=== PATIENT | female | born 1965 | race Caucasian/White ===

== ENCOUNTER 2022-03-12 15:46 | Outpatient (REF) | payer OTHER, SELFPAY ==
--- NOTE | ~2022-03-12 | XR_ITS ---
EXAMINATION: XR BILATERAL HIPS WITH AP PELVIS CLINICAL INFORMATION: Meralgia paresthetica, bilateral lower limbs. COMPARISON: None TECHNIQUE: AP view of the pelvis and single views of each hip were obtained. FINDINGS: No acute fracture or dislocation is seen. There may be old trauma to the left inferior pubic symphysis. There is arthritis at the bilateral hip joints with superior lateral osteophyte formation. There is increased coverage of the superior lateral femoral head questionable for CAM deformity. Soft tissue calcification adjacent to the greater trochanter. There is soft tissue arterial calcification. XR/XR hip BI w PEL1V IMPRESSION: Question old trauma to the left inferior pubic symphysis. 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 Soft tissue calcification adjacent to the right greater trochanter.
--- NOTE | ~2022-03-12 | XR_ITS ---
EXAMINATION: XR LUMBOSACRAL SPINE WITH OBLIQUES CLINICAL INFORMATION: Spondylosis without myelopathy or radiculopathy, lumbar COMPARISON: None TECHNIQUE: AP, both oblique, flexion and extension and lateral views of the lumbar spine. Lateral view of the lumbosacral junction. FINDINGS: There is transitional anatomy with 6 lumbar-type vertebral bodies. For the purposes of this dictation, levels are designated with the transitional segment is designated superiorly and the top of the iliac crest at the L4-L5 disc space level. Bone alignment is normal. No fracture or dislocation is seen. No instability on flexion-extension views is seen. Disc spaces are normal. There is mild degenerative spondylosis and facet arthritis. There is question of L5 pars defect on the left. Paraspinal soft tissues are normal. XR/XR lumbar spine 6V w bending IMPRESSION: Transitional anatomy or 6 lumbar-type vertebral bodies with transitional segment designated superiorly. Mild degenerative changes. Question pars defect at L5 on the left. Mild degenerative changes.
== END 2022-03-12 15:47 | disposition home or self-care (01) ==
LOC: HO.XRAY 15:46
PROVIDERS: PCP Internal Medicine; Visit Provider Nurse Practitioner Family
DX: G57.13 Meralgia paresthetica, bilateral lower limbs (principal); M47.816 Spondylosis without myelopathy or radiculopathy, lumbar region; R29.898 Other symptoms and signs involving the musculoskeletal system; E11.40 Type 2 diabetes mellitus with diabetic neuropathy, unspecified
CPT/HCPCS: 72114; 73521

== ENCOUNTER → 2022-04-05 14:34 | Outpatient (BNVA) | payer OTHER, MEDICAID, SELFPAY | PROVIDERS: PCP Internal Medicine; Visit Provider Orthopaedic Surgery | DX: M16.11 Unilateral primary osteoarthritis, right hip (principal); E11.40 Type 2 diabetes mellitus with diabetic neuropathy, unspecified | CPT/HCPCS: 99202 ==

== ENCOUNTER 2022-04-27 12:44 | Outpatient (REF) | payer OTHER, MEDICAID, SELFPAY | END 2022-04-27 12:45 | disposition home or self-care (01) | LOC: HO.LAB 12:44 | PROVIDERS: PCP Internal Medicine; Visit Provider Urology | DX: R32 Unspecified urinary incontinence (principal); N39.0 Urinary tract infection, site not specified | CPT/HCPCS: 51701; 51798; 87086; 87088; 87186; 99202 ==

== ENCOUNTER 2022-05-23 13:45 | Outpatient (REF) | payer OTHER, SELFPAY ==
--- NOTE | 2022-05-23 10:30 | EMG_ITS ---
Please see scanned EMG / Nerve Conduction Report. MTDD
== END 2022-05-23 13:46 | disposition home or self-care (01) ==
LOC: HO.NEURO 13:45
PROVIDERS: PCP Internal Medicine; Visit Provider Nurse Practitioner Family
DX: G57.13 Meralgia paresthetica, bilateral lower limbs (principal); E11.40 Type 2 diabetes mellitus with diabetic neuropathy, unspecified; M47.816 Spondylosis without myelopathy or radiculopathy, lumbar region; R29.898 Other symptoms and signs involving the musculoskeletal system
CPT/HCPCS: 95885; 95913

== ENCOUNTER → 2022-05-31 14:40 | Outpatient (BNVA) | payer OTHER, MEDICAID, SELFPAY | PROVIDERS: PCP Internal Medicine; Visit Provider Nurse Practitioner Family | DX: Z13.89 Encounter for screening for other disorder (principal) ==

== ENCOUNTER 2022-06-13 14:37 | Outpatient (REF) | payer OTHER, SELFPAY ==
--- NOTE | ~2022-06-13 | US_ITS ---
EXAMINATION: US RETROPERITONEAL LIMITED (RENAL ONLY) CLINICAL INFORMATION: Urinary tract infection, site not specified. COMPARISON: Ultrasound retroperitoneal complete (renal) 09/08/2021. TECHNIQUE: Real-time imaging of the kidneys. FINDINGS: RIGHT KIDNEY: 12.9 x 4.5 x 5.7 cm (SAG x AP x TRV). The kidney is normal in size, contour, and echogenicity. Renal cortical thickness is normal. No calculi or focal parenchymal lesions. No hydronephrosis. LEFT KIDNEY: 12.6 x 4.9 x 5.6 cm (SAG x AP x TRV). The kidney is normal in size, contour, and echogenicity. Renal cortical thickness is normal. No calculi or focal parenchymal lesions. No hydronephrosis. US/US renal BI IMPRESSION: Normal kidneys bilaterally.
== END 2022-06-13 14:38 | disposition home or self-care (01) ==
LOC: HO.US 14:37
PROVIDERS: Visit Provider Urology
DX: N39.0 Urinary tract infection, site not specified (principal); R32 Unspecified urinary incontinence
CPT/HCPCS: 76775

== ENCOUNTER 2022-07-26 12:58 | Outpatient (REF) | payer OTHER, SELFPAY ==
[2022-07-26 17:13] LABS: Urine Cytology See Pathology rpt
== END 2022-07-26 12:59 | disposition home or self-care (01) ==
LOC: HO.LAB 12:58
PROVIDERS: PCP Internal Medicine; Visit Provider Urology
DX: R31.29 Other microscopic hematuria (principal); R32 Unspecified urinary incontinence; N39.0 Urinary tract infection, site not specified; Z79.899 Other long term (current) drug therapy
CPT/HCPCS: 88112

== ENCOUNTER → 2022-07-27 14:49 | Outpatient (BNVA) | payer OTHER, SELFPAY | PROVIDERS: PCP Internal Medicine; Visit Provider Nurse Practitioner Family | DX: M48.062 Spinal stenosis, lumbar region with neurogenic claudication (principal); M47.816 Spondylosis without myelopathy or radiculopathy, lumbar region; R29.898 Other symptoms and signs involving the musculoskeletal system; M79.662 Pain in left lower leg; M79.661 Pain in right lower leg; E11.40 Type 2 diabetes mellitus with diabetic neuropathy, unspecified; R32 Unspecified urinary incontinence | CPT/HCPCS: 99212 ==

== ENCOUNTER 2022-07-31 11:32 | Outpatient (REF) | payer OTHER, SELFPAY ==
--- NOTE | ~2022-07-31 | MR_ITS ---
EXAMINATION: MR LUMBAR SPINE WITHOUT CONTRAST CLINICAL INFORMATION: Spinal stenosis. Neurogenic claudication. COMPARISON: Lumbar spine radiographs 03/12/2022. TECHNIQUE: MRI of the lumbar spine was obtained using routine sequences without contrast. FINDINGS: There is grade 1 anterolisthesis of L5 on S1 related to bilateral L5 pars interarticularis defects. Alignment is otherwise normal. Vertebral heights are preserved. No acute bone marrow signal changes. There is disc desiccation at multiple levels without substantial loss of intervertebral disc height. The tip of the conus medullaris is located at L1. No mass effect on the conus. Visualized distal cord signal intensity is normal. At L1-L2 the annular contour is normal. No canal or neuroforaminal compromise. At L2-L3 there is a bulging disc. Bilateral facet degenerative change. No canal stenosis. No mass effect on the traversing or foraminal nerve roots. At L3-L4 there is a small central annular fissure associated with a bulging disc. Lateral facet degenerative change. No canal stenosis. No mass effect on traversing or foraminal nerve roots. At L4-L5 there is a central annular fissure associated with a bulging disc. Bilateral facet degenerative change. Subarticular zone narrowing causes abutment of both traversing L5 nerve roots. No foraminal nerve root compression. At L5-S1 there is a pseudodisc bulge. No canal stenosis. There is partial effacement of the perineural fat with mild mass effect on the left L5 foraminal nerve root. Limited visualization of the retroperitoneal anatomy reveals no abnormal finding. Psoas and paraspinal muscle groups are symmetric. MR/MR lumbar spine wo con IMPRESSION: There is grade 1 anterolisthesis of L5 on S1 related to bilateral L5 pars interarticularis defects. Consequently there is mild mass effect on the left L5 foraminal nerve root. A bulging disc in conjunction with facet degenerative change at L4-L5 causes abutment of both traversing L5 nerve roots. Otherwise no substantial mass effect on the traversing or foraminal nerve roots elsewhere within the lumbar spine. No canal stenosis.
== END 2022-07-31 11:33 | disposition home or self-care (01) ==
LOC: HO.MRI 11:32
PROVIDERS: PCP Internal Medicine; Visit Provider Nurse Practitioner Family
DX: M47.816 Spondylosis without myelopathy or radiculopathy, lumbar region (principal); M48.062 Spinal stenosis, lumbar region with neurogenic claudication; R29.898 Other symptoms and signs involving the musculoskeletal system; R32 Unspecified urinary incontinence
CPT/HCPCS: 72148

== ENCOUNTER → 2022-08-02 08:20 | Outpatient (BNVA) | payer OTHER, SELFPAY | PROVIDERS: PCP Internal Medicine; Visit Provider Nurse Practitioner Family | DX: M47.26 Other spondylosis with radiculopathy, lumbar region (principal); R26.89 Other abnormalities of gait and mobility; R29.898 Other symptoms and signs involving the musculoskeletal system; G89.4 Chronic pain syndrome; I73.9 Peripheral vascular disease, unspecified; E11.40 Type 2 diabetes mellitus with diabetic neuropathy, unspecified; E11.65 Type 2 diabetes mellitus with hyperglycemia; E11.29 Type 2 diabetes mellitus with other diabetic kidney complication; N28.9 Disorder of kidney and ureter, unspecified; E66.01 Morbid (severe) obesity due to excess calories; Z68.36 Body mass index [BMI] 36.0-36.9, adult | CPT/HCPCS: 99212 ==